=== PATIENT | female | born 1965 | race African-American/Black ===

== ENCOUNTER 2019-03-21 16:13 | Emergency (ER) | payer SELFPAY ==
[~2019-03-21] VITALS: Ht 172.7 cm; Wt 109.0 kg
[2019-03-21] MEDS ORDERED: SODIUM CHLORIDE 0.9% 1,000 ML IV ONE (18:25)
[2019-03-21] MEDS ORDERED: MORPHINE SULFATE 4 MG/ML CPJ (NOT FOR IM USE) IV STA (18:25)
[2019-03-21] MEDS ORDERED: ONDANSETRON HCL 4MG/2ML INJ IV STA (18:25)
[2019-03-21 18:55] LABS: BASOPHILS % 0.5 % (0.0-2.0); EOSINOPHILS % 0.5 % (0.0-5.0); HEMATOCRIT. 38.8 % (36.0-48.0); HEMOGLOBIN. 12.8 g/dL (12.0-16.0); LYMPHOCYTES % 23.2 % (20.0-50.0); MEAN CORPUSCULAR HEMOGLOBIN 26.7 pg (28.0-32.0); MEAN CORPUSCULAR VOLUME 80.8 fL (81.0-99.0); MEAN PLATELET VOLUME 8.5 fl (7.4-10.4); MONOCYTES % 4.9 % (2.0-8.0); NEUTROPHILS % 70.9 % (40.0-76.0); PLATELET 327 x1000/uL (130-400)
[2019-03-21 19:00] LABS: CHLORIDE 101 mEq/L (98-107)
[2019-03-21 19:02] LABS: PARTIAL THROMBOPLASTIN TIME 30.6 sec (23.4-31.0); PROTHROMBIN TIME 10.3 sec (9.6-11.0)
[2019-03-21] MEDS ORDERED: MORPHINE SULFATE 4 MG/ML CPJ (NOT FOR IM USE) IV ONE (19:30)
[2019-03-21] MEDS ORDERED: ETOMIDATE 2MG/ML 10ML VIAL IV ONE (19:30)
[2019-03-22 03:53] VITALS: BP 147/81
== END 2019-03-22 04:03 | disposition short-term general hospital (02) ==
LOC: ER 16:13 → CANBEDREQ 03-22 02:17 → ER 03-22 04:03
DX: S82.891A Other fracture of right lower leg, initial encounter for closed fracture (principal); W01.0XXA Fall on same level from slipping, tripping and stumbling without subsequent striking against object, initial encounter; Y93.89 Activity, other specified; Y92.9 Unspecified place or not applicable; F41.9 Anxiety disorder, unspecified; J45.909 Unspecified asthma, uncomplicated; E11.9 Type 2 diabetes mellitus without complications; I10 Essential (primary) hypertension
CPT/HCPCS: 27840; 36415; 71045; 73560; 73600; 80053; 82962; 84484; 85025; 85610; 85730; 86850; 86900; 86901; 93005; 96374; 96375; 96376; 99152; 99285; J2270; J2405; J3490; J7030; A4315